=== PATIENT | male | born 1965 | race Caucasian/White ===

== ENCOUNTER 2022-08-11 11:36 | Outpatient (CLI) | payer BC ==
[2022-08-11 12:19] LABS: ALBUMIN 4.1 g/dL (3.2-5.5); ALBUMIN/GLOBULIN RATIO 1.1 (1.0-2.2); ALKALINE PHOSPHATASE 70 IU/L (42-121); ALT ALANINE AMINOTRANSFERASE 35 IU/L (10-60); AST ASPARTATE AMINOTRANSFERASE 28 IU/L (10-42); BILIRUBIN,TOTAL 0.6 mg/dL (0.2-1.0); BUN - BLOOD UREA NITROGEN 19 mg/dL (6-20); CARBON DIOXIDE - CO2 26 mmol/L (21-32); CHLORIDE 102 mmol/L (101-111); CHOL/HDL RATIO 5.8 (<5.0); CHOLESTEROL 192 mg/dL; CREATININE 0.8 mg/dL (0.6-1.2); GFR - MDRD 100 (>89); GLUCOSE 107 mg/dL (70-100); HDL CHOLESTEROL 33 mg/dL; LDL CHOLESTEROL,CALCULATED 138 mg/dL; LDL/HDL RATIO 4.2 (<3.6); POTASSIUM 4.1 mmol/L (3.5-5.0); SODIUM 137 mmol/L (135-145); TOTAL PROTEIN 7.7 g/dL (6.7-8.2); TRIGLYCERIDES 104 mg/dL; VLDL CHOLESTEROL 21 mg/dL
[2022-08-11 21:00] LABS: ESTIMATED AVERAGE GLUCOSE 117 mg/dL (70-100); HEMOGLOBIN A1c% 5.7 % (4.27-6.07)
== END 2022-08-11 11:37 | disposition home or self-care (01) ==
LOC: LAB 11:36
DX: Z00.00 Encounter for general adult medical examination without abnormal findings (principal)
CPT/HCPCS: 36415; 80053; 80061; 83036; 83721; 84153

== ENCOUNTER 2023-01-13 10:21 | Emergency (ER) | payer BC, OTHER ==
[2023-01-13 10:41] VITALS: BP 150/97
[2023-01-13] MEDS ORDERED: OXYMETAZOLINE HCL 100 SPRAYS BOTTLE NAS STA (10:58)
--- NOTE | 2023-01-13 11:31 | ED Physician Documentation ---
PD HPI HEENT - Stated complaint Stated Complaint: NOSEBLEED - Chief complaint Chief Complaint: Heent - History obtained from History obtained from: Patient, Family - History of Present Illness Timing - onset: Today, How many days ago (2) Timing - duration: Days (2) Timing - details: Abrupt onset, Now resolved, Waxing and waning Location: Nose Improves: Medication Associated symptoms: No: Fever, Congestion, Rhinorrhea, Trismus, Unable to swallow, Swollen nodes, Facial swelling, Headache, Cough Similar symptoms before: Diagnosis (nosebleed) Recently seen: Not recently seen - Additional information Additional information: 57-year-old Petey Garibay developed bleeding from the right nares 2 days ago. He was able to control the bleeding at that time and he did not have rhyme or reason for this. He states that he did have nosebleeds chronically as a child and those have stopped for 40 years.Today his bleeding restarted and he is having difficult time controlling and he is come to the emergency department. After having oxymetazoline instilled the patient no longer has epistaxis. Review of Systems Constitutional: denies: Fever Eyes: denies: Decreased vision Ears: denies: Ear pain Nose: reports: Rhinorrhea / runny nose, Congestion, Epistaxis Throat: denies: Sore throat Respiratory: denies: Cough GI: denies: Vomiting PD PAST MEDICAL HISTORY - Allergies Allergies/Adverse Reactions: Allergies Allergy/AdvReac Type Severity Reaction Status Date / Time codeine Allergy Unknown Verified 01/13/23 10:41 erythromycin base Allergy Unknown Verified 01/13/23 10:41 PD ED PE NORMAL - Vitals Vital signs reviewed: Yes (hypertensive) - General General: Alert and oriented X 3, No acute distress, Well developed/nourished - HEENT HEENT: Atraumatic, PERRL, EOMI, Other (residual blood from the left no clots or "skid heller") - Neck Neck: Supple, no meningeal sign - Respiratory Respiratory: No respiratory distress - Derm Derm: Normal color, Warm and dry, No rash - Extremities Extremities: No deformity, No edema - Neuro Neuro: Alert and oriented X 3, tax agent 2-12 intact, No motor deficit, No sensory deficit, Normal speech Eye Opening: Spontaneous Motor: Obeys Commands Verbal: Oriented GCS Score: 15 - Psych Psych: Normal mood, Normal affect Results - Vitals Vitals: Vital Signs - 24 hr 01/13/23 10:39 Temperature 36 C L Heart Rate 75 Respiratory 16 Rate Blood Pressure 150/97 H O2 Saturation 95 Oxygen O2 Source Room air PD Medical Decision Making - ED course Complexity details: considered differential, d/w patient, d/w family ED course: 57-year-old male with a recurrent nosebleed over the past 2 days presents to the emergency department is administered some oxymetazoline on and clamped with resolution of his symptoms. There is no large clot. The patient's examination did not show any obvious source of bleeding. He is managed conservatively. Departure - Departure Disposition: Home, Self Care Clinical Impression: Epistaxis Condition: Stable Instructions: ED Nosebleed Follow-Up: FROILAN DUARTE MD [Physician No Access] - Comments: Petey, today it looks like your nosebleed was relatively easily controlled with use of the oxymetazoline. If your nose begins to rebleed use the spray again and use the clamp. If you are unable to control bleeding we are here 24 hours a day. Discharge Date/Time: 01/13/23 11:43
== END 2023-01-13 11:43 | disposition home or self-care (01) ==
LOC: ED 10:21
DX: R04.0 Epistaxis (principal)
CPT/HCPCS: 99282; 99283; A9270

== ENCOUNTER 2024-03-05 10:49 | Outpatient (CLI) | payer OTHER ==
--- NOTE | 2024-03-05 11:27 | Sleep Patient Instructions ---
Sleep Center Visit Summary - Patient Visit Information Reason for Visit: Initial consult for evaluation of sleep disordered breathing and other sleep issues. - Patient Instructions Instructions Attached: Sleep Study, Sleep Study Home Monitor Additional Instructions: You will be completing a sleep study, either an in-lab polysomnography (PSG) or home sleep study (HST). You will follow-up in the sleep care office after the sleep study is completed to hear the results and talk about therapy, if needed. You will be called by our office staff to schedule this appointment, but you may contact us with any questions. - Clinic Information Contact: [facility] [address] [place] [id number] [email or web address] T: [phone]
[2024-03-05 11:31] VITALS: BP 143/80; O2SAT 99
--- NOTE | 2024-03-05 11:31 | SLEEP CARE CONSULTATION ---
Information from patient questionnaire entered by Aric Mccloud. I have reviewed and concur with the information entered by Aric Mccloud. This document represents the service I personally performed and the decisions made by me, Yin Pacheco ARNP. History of Present Illness Service Date and Time: 03/05/2024 1049 Reason for Visit: New patient Chief Complaint: reports: Snoring, Excessive daytime sleepiness, Observed pauses in breathing, Fatigue Date of Onset: few years Usual bedtime: 2400 Time it takes to fall asleep: 5-10 minutes, occasionally longer Snores at night: Yes Observed to quit breathing while asleep: Yes Sleeps alone due to snoring: No Number of times waking at night: 0-1 Reasons for waking at night: reports: Snoring, Other (UNKNOWN). denies: Choking, Gasping for air Toss, Turn, or Twitch while sleeping: Yes Recalls having dreams: Yes Usually gets out of bed at: 0800 Feels refreshed in the morning: Yes (most of the time) Morning headache: No Sleepy or fatigued during the day: Yes Ever fallen asleep while driving: Yes (drowsy driving, no accidents) Takes day naps: Yes (few times a year) Dreams during day naps: No Prior sleep studies: No Additional HPI information: I had the pleasure of seeing THEA ZENDEJAS today regarding the possibility of him having a sleep disorder. His current complaints are excessive daytime sleepiness, fatigue, observed pauses in breathing and snoring. His tells him that his snoring needs to be checked out. She is currently in on a CPAP. She has occasionally noticed that he will stop breathing and the snoring is sometimes "very noticeable". He says a couple times he has woke himself with his snoring when he is on his back. He normally sleeps on his sides and tosses/turns a lot at night. - Parasomnia Symptoms Ever been unable to move upon waking from sleep: No Walks in sleep: No Talks in sleep: No Ever acted out dreams in sleep: No Ever felt weak in the knees when startled or emotional: No Bothered by creepy, crawly, restless sensations in legs: No Problems with memory or concentration: No Subjective Initial Rich[place] Sleepiness Scale score: 8 (03/05/24) Past Medical History Past Medical History: reports: GERD, Other (high cholesterol) Social History The patient's occupation is a [employer]. Patient is and lives in . Have you smoked in the past 12 months: No Alcohol use: Yes Alcohol amount and frequency: LESS THAN ONCE A WEEK Caffeine use: Yes Caffeine amount and frequency: 1-2 DAILY Family History Family history of sleep disordered breathing: No Allergies and Home Medications Known drug allergies: Yes ( LISTED) Drug allergies reviewed: Yes Home medication list reviewed: Yes (as listed) Allergy and home medication list: Allergies codeine Allergy (Verified 03/03/24 11:11) Unknown erythromycin base Allergy (Verified 03/03/24 11:11) Unknown Home Medications Medication Instructions Recorded Confirmed Last Taken Type Atorvastatin [Lipitor] See Rx Instructions .ROUTE .COMPLEX 03/05/24 03/05/24 Unknown History Multivitamin See Rx Instructions .ROUTE .COMPLEX 03/05/24 03/05/24 Unknown History Omeprazole See Rx Instructions .ROUTE .COMPLEX 03/05/24 03/05/24 Unknown History glucosamine HCL [Glucosamine HCl] See Rx Instructions .ROUTE .COMPLEX 03/05/24 03/05/24 Unknown History Review of Systems Weight gain over past 5 years: 20 Cardiovascular: denies: high blood pressure Gastrointestinal: reports: heartburn, difficulty swallowing Neurological: denies: headaches Psychiatric: denies: anxiety, depression Ear/Nose/Throat: reports: wisdom teeth removed. denies: tonsillectomy Musculoskeletal: reports: joint pain Physical Exam Vital signs obtained and entered by: ARIC Oliver MA Blood Pressure: 143/80 (RIGHT ARM) Cuff size: long Heart Rate: 74 O2 Saturation: 99 Height: 5 ft 7 in Weight: 228 lb Body Mass Index: 35.6 BMI Classification: Obese Neck circumference: 17.5 Nostrils: patent to airflow Mouth and throat: narrow oropharynx Soft palate: long Hard palate: normal Uvula: normal Uvula visualization: 0% Mallampati Class IV Tongue: enlarged in size with teeth heller on lateral edges Tonsils: 2+ Neck: normal w/o lymphadenopathy or thyromegaly Heart: regular rate and rhythm Lungs: clear bilaterally Impression and Plan 1. Suspected Obstructive Sleep Apnea-Hypopnea Syndrome, as suggested by a history of loud and irregular snoring, observed cessation of breath while asleep, and excessive daytime sleepiness. Narrow oropharynx and obesity are common predisposing factors for obstructive sleep apnea-hypopnea syndrome. I recommend proceeding to polysomnography to confirm the diagnosis and to assess severity. If the patient has significant sleep disordered breathing, a manual CPAP titration study will also be performed to find the optimal treatment pressure. I informed the patient of what the sleep studies involve and after some discussion, obtained agreement to proceed. The pathophysiology of obstructive sleep apnea-hypopnea syndrome was discussed with the patient and health risks of cardiovascular and cerebrovascular disease if not treated. Risks of drowsy driving discussed in detail and patient advised to avoid long distance driving and to pulling unit floorhand at the first sign of drowsiness. Patient agreed to plan. * Schedule polysomnography * Avoid long distance driving or driving when feeling sleepy. * Avoid alcohol, sedative and muscle relaxant around bedtime. * Attempt to lose weight. * Review instructions provided by trained office staff on how to prepare for the sleep study. * Return for follow-up after sleep study completed. Counseling Topics: Weight loss health impact Plan: PSG/HST and follow up Visit Type: In Office Time Spent with Patient (minutes): 30 Provider Statement: I spent 100% of the Face to Face Visit with the patient with greater than 50% spent counseling the patient and coordination of care.
== END 2024-03-05 10:50 | disposition home or self-care (01) ==
LOC: SC 10:49
PROVIDERS: ATTEND Nurse Practitioner Family
DX: G47.10 Hypersomnia, unspecified (principal); R53.83 Other fatigue; R06.81 Apnea, not elsewhere classified; R06.83 Snoring; E66.9 Obesity, unspecified; Z68.35 Body mass index [BMI] 35.0-35.9, adult
CPT/HCPCS: 99203; 99212

== ENCOUNTER 2024-03-18 09:30 | Outpatient (CLI) | payer OTHER | END 2024-03-18 09:31 | disposition home or self-care (01) | LOC: SC 09:30 | PROVIDERS: ATTEND Nurse Practitioner Family | DX: G47.33 Obstructive sleep apnea (adult) (pediatric) (principal); R09.02 Hypoxemia; E66.9 Obesity, unspecified; Z68.35 Body mass index [BMI] 35.0-35.9, adult | CPT/HCPCS: 95806 ==

== ENCOUNTER 2024-04-04 09:20 | Outpatient (CLI) | payer OTHER ==
--- NOTE | 2024-04-04 10:02 | Sleep Patient Instructions ---
Sleep Center Visit Summary - Patient Visit Information Reason for Visit: Sleep study follow-up - Patient Instructions Additional Instructions: You are to start Positional therapy to control your sleep apnea. You may obtain positional belts or other commercial devices online. You may also use pillows to position yourself on your side or a T shirt with balls sewn into the back to help keep you on your side to sleep. We would like to follow up with you in a month to check effectiveness of therapy. Please call office to schedule a follow up appointment in the sleep care office in 1-2 months. - Clinic Information Contact: [facility] [address] [place] [address] [email or web address] T: [phone]
--- NOTE | 2024-04-04 10:06 | SLEEP CARE CONSULTATION ---
Information from patient questionnaire entered by Sanya Burgos. I have reviewed and concur with the information entered by Sanya Burgos. This document represents the service I personally performed and the decisions made by , Yin Pacheco ARNP. History of Present Illness Service Date and Time: 04/04/2024 09 Initial Sheldon Sleepiness Scale score: 8 (03/05/24) Current Sheldon Sleepiness Scale score: 9 (04/04/24) Additional HPI information: THEA ZENDEJAS returns for follow up and results of the recently performed home sleep study. The sleep study done on 03/18/24 showed mild obstructive sleep apnea with an average AHI of 9.2 and donald oxygen saturation of 82%. I explained the pathophysiology behind obstructive sleep apnea. We then spent quite a bit of time discussing different treatment options. For mild obstructive sleep apnea, surgery and oral appliance are alternatives to nasal CPAP therapy but in moderate or severe cases, nasal CPAP is the most effective and reliable treatment. Because apnea is primarily in supine position, then positional management therapy could be effective. Methods discussed such as positioning with pillows, using a T-shirt with tennis balls in the back or commercial products that have a pillow format on back to prevent supine sleep. I reviewed the impact of weight changes on sleep apnea and strongly recommended losing weight. After some discussion, the patient opted to go with positional therapy. Patient counseled not drink alcohol less than 4 hours before bedtime as it can increase snoring and apnea. Patient was cautioned about risks of drowsy driving until sleepiness symptoms resolve. Patient denies drowsy driving. Sleep Study - Results Type of Sleep Study: Home sleep study Prior sleep studies: No Polysomnography/Home Sleep Study results: Physician Impression: The quality of the study is good. The length of the study is adequate (> 240 minutes). Please also see the tabulated and graphic data. 1. Obstructive Sleep Apnea-Hypopnea (ICD-10 G47.33), mild, with an AHI of 9.2/hr and donald SaO2 of 82%. During the study, the patient had 9 apneas (9 obstructive, 0 central, 0 mixed) and 57 hypopneas. The longest episode lasted 112.0 seconds. The respiratory events occurred almost exclusively during supine sleep (supine AHI was 25.7 and non-supine, 3.38). 2. Hypoxemia (ICD-10 R09.02), mild, with the lowest oxygen saturation of 82 % and 5.7 minutes with SaO2 under 90%. Baseline oxygen saturation was normal (Average oxygen saturation was 92%). Allergies and Home Medications Known drug allergies: Yes (as listed) Drug allergies reviewed: Yes Home medication list reviewed: Yes (no changes) Allergy and home medication list: Allergies codeine Allergy (Verified 03/05/24 10:52) Unknown erythromycin base Allergy (Verified 03/05/24 10:52) Unknown Review of Systems Review of systems same as previous: Yes (no changes) Physical Exam Vital signs obtained and entered by: ARIC Boateng MA Blood Pressure: 157/90 (LEFT ARM) Cuff size: long Heart Rate: 81 O2 Saturation: 97 Height: 5 ft 7 in Weight: 227 lb 6.4 oz Body Mass Index: 35.6 BMI Classification: Obese Impression and Plan 1. Obstructive Sleep Apnea-Hypopnea Syndrome, mild, with lowest oxygen saturation of 82%. Obviously this is the cause of the patients symptoms of unrefreshed sleep, and excessive daytime sleepiness. Positive pressure therapy could benefit gastric reflux. Since patients apnea is primarily in supine position, patient advised to try positional therapy and agreed with plan. He is also advised to lose weight as this will reduce snoring and apnea. An oral appliance can also be used for snoring but often is not covered by insurance. Follow up is scheduled for one month to check effectiveness of therapy. 2. Hypoxemia, mild, with a donald oxygen saturation of 82% and 5.7 minutes spent under 90%. The baseline oxygen saturation was normal with an average oxygen saturation of 92%. 3. Obesity, unspecified. Currently patients BMI is 35.6. Obesity increases the risk of apnea, CPAP pressure requirements and overall health risks especially cardiovascular and diabetes. Thus patient is advised to lose weight. * Positional therapy. * Attempt to lose weight. * Avoid alcohol consumption near bedtime. * Avoid supine sleep. * The patient is again cautioned about driving until sleepiness completely resolves. * Return in 1-2 months. I will assess response to therapy at that time. Counseling Topics: Weight loss health impact Follow up with Sleep Care in: 1-2 months (for positional therapy) Visit Type: In Office Time Spent with Patient (minutes): 20 Provider Statement: I spent 100% of the Face to Face Visit with the patient with greater than 50% spent counseling the patient and coordination of care.
[2024-04-04 10:16] VITALS: BP 157/90; O2SAT 97
== END 2024-04-04 09:21 | disposition home or self-care (01) ==
LOC: SC 09:20
PROVIDERS: ATTEND Nurse Practitioner Family
DX: G47.33 Obstructive sleep apnea (adult) (pediatric) (principal); R09.02 Hypoxemia; E66.9 Obesity, unspecified; Z68.35 Body mass index [BMI] 35.0-35.9, adult
CPT/HCPCS: 99212; 99213

== ENCOUNTER 2024-05-21 12:52 | Outpatient (CLI) | payer OTHER ==
--- NOTE | 2024-05-21 13:20 | Sleep Patient Instructions ---
Sleep Center Visit Summary - Patient Visit Information Reason for Visit: Follow-up in sleep care for positional therapy - Patient Instructions Instructions Attached: Apnea Sleep Mouthpieces Additional Instructions: You were here for follow up of Positional therapy. You will be continued on positional therapy. You are looking into an oral appliance. We should do a follow up a month after you have been using your oral appliance. You should follow up with sleep care in 2-3 months, after you have your new oral appliance and have been using it. You may contact us sooner for any questions or concerns. - Clinic Information Contact: [facility] [address] [place] [address] [email or web address] T: [phone]
--- NOTE | 2024-05-21 13:24 | SLEEP CARE CONSULTATION ---
Information from patient questionnaire entered by Aric Mccloud. I have reviewed and concur with the information entered by Aric Mccloud. This document represents the service I personally performed and the decisions made by me, Yin Pacheco ARNP. History of Present Illness Service Date and Time: 05/21/2024 1252 Previous diagnosis: Mild, Obstructive Sleep Apnea-Hypopnea Syndrome AHI: 9.2 (03/18/24) Reason for follow up: other (6 week f/u positional therapy) Prior sleep studies: No Type of Sleep Study: Home sleep study (03/18/2024) HPI additional information: THEA ZENDEJAS was diagnosed to have mild, AHI 9.2, obstructive sleep apnea- hypopnea syndrome and returned today for positional therapy six week follow-up. Sleep Study - Results Type of Sleep Study: Home sleep study Prior sleep studies: No CPAP Compliance Data Compliance data discussion: He is using a Sleep Noodle which is helping him to stay off his back on a nightly basis. Subjective On therapy, patient: reports: sleeping better, awakening more refreshed, more rested overall. denies: drowsiness while driving Initial [place] Sleepiness Scale score: 8 (03/05/24) Current [place] Sleepiness Scale score: 7 (05/21/24) Allergies and Home Medications Known drug allergies: Yes (as listed) Drug allergies reviewed: Yes Home medication list reviewed: Yes (no changes) Allergy and home medication list: Allergies codeine Allergy (Verified 05/21/24 12:53) Unknown erythromycin base Allergy (Verified 05/21/24 12:53) Unknown Review of Systems Review of systems same as previous: Yes (NO CHANGE) Physical Exam Vital signs obtained and entered by: ARIC Oliver MA Blood Pressure: 151/92 (RIGHT ARM) Cuff size: regular Heart Rate: 71 O2 Saturation: 94 Height: 5 ft 7 in Weight: 227 lb Body Mass Index: 35.5 BMI Classification: Obese Impression and Plan 1. Obstructive Sleep Apnea-Hypopnea Syndrome, mild. Using positional therapy, th e patient has better sleep quality and is more rested overall. He states he has been able to do the positional therapy without difficulty and he does feel some improvement of his sleep. His has noticed that his snoring is greatly reduced when he is sleeping on his side but he does still snore a little. He says he spoke with his dentist about an oral appliance for his sleep apnea. He gave a copy of his sleep study to his dentist and has an appointment to start his evaluation to get the oral appliance made. He is not sure if he needs a prescription to get it started but I will put one together for him to take to his dentist in case he needs it. Patient's apnea severity and rationale for treatment to reduce apnea, improve sleep quality and reduce cardiovascular and cerebrovascular events was reviewed. I also reviewed the benefit of consistent device use of CPAP for gastric reflux. 2. Obesity, unspecified. Currently patients BMI is 35.5. Obesity increases the risk of apnea, CPAP pressure requirements and overall health risks especially cardiovascular and diabetes. Thus patient is advised to lose weight. * Continue positional therapy * Oral appliance * Attempt to lose weight * Call this office if any problems * Return for follow up one month after obtaining new device, or sooner if concerns arise Counseling Topics: Weight loss health impact Prescriptions: Other (Oral Appliance) Follow up with Sleep Care in: 3 months (2-3) Visit Type: In Office Time Spent with Patient (minutes): 22 Provider Statement: I spent 100% of the Face to Face Visit with the patient with greater than 50% spent counseling the patient and coordination of care.
[2024-05-21 13:26] VITALS: BP 151/92; O2SAT 94
== END 2024-05-21 12:53 | disposition home or self-care (01) ==
LOC: SC 12:52
PROVIDERS: ATTEND Nurse Practitioner Family
DX: G47.33 Obstructive sleep apnea (adult) (pediatric) (principal); E66.9 Obesity, unspecified; Z68.35 Body mass index [BMI] 35.0-35.9, adult
CPT/HCPCS: 99212; 99213